=== PATIENT | female | born 1975 | race Caucasian/White ===

== ENCOUNTER 2017-09-08 21:19 | Emergency (ER) | payer OTHER ==
[2017-09-08] MEDS ORDERED: cefTRIAXone 500 MG in Lidocaine 1% 2 ML IM ONE (21:52)
--- NOTE | 2017-09-08 21:52 | EDM.PDOC ---
ED HPI GENERAL MEDICAL PROBLEM - General Chief Complaint: ENT Problem Stated Complaint: PT HAS EAR INFECTION Time Seen by Provider: 09/08/17 21:36 Source of Information: Reports: Patient History Limitations: Reports: No Limitations - History of Present Illness INITIAL COMMENTS - FREE TEXT/NARRATIVE: HISTORY AND PHYSICAL: History of present illness: Patient is a 42-year-old female who presents to the emergency room with complaints of right ear pain. She states she was seen in the clinic yesterday and put on Ceftiner. She was not placed on Augmentin as she does have a history of severe diarrhea with this medication. She took 1 tablet yesterday and 2 tablets today and has not improved. Complaining of pressure and "ringing" to right ear. Denies any fever, chills, chest pain or shortness of breath. Denies any abdominal pain, nausea, vomiting or diarrhea. Patient does have a history of psoriasis and has a "flareup since her ear infection". Review of systems: As per history of present illness and below otherwise all systems reviewed and negative. Past medical history: As per history of present illness and as reviewed below otherwise noncontributory. Surgical history: As per history of present illness and as reviewed below otherwise noncontributory. Social history: No reported history of drug or alcohol abuse. Family history: As per history of present illness and as reviewed below otherwise noncontributory. Physical exam: General: Nontoxic-appearing 42-year-old female. Alert and oriented. Appears in no acute distress. HEENT: Atraumatic, normocephalic, pupils reactive, negative for conjunctival pallor or scleral icterus, mucous membranes moist, throat clear, erythema noted to the right ear canal and dull light reflex with erythema to the tympanic membrane. Left TM is normal. Her neck is supple, nontender, trachea midline. Drooling or trismus. No meningeal signs. Lungs: Clear to auscultation, breath sounds equal bilaterally, chest nontender. Heart: S1S2, regular, negative for clicks, rubs, or JVD. Abdomen: Soft, nondistended, nontender. Negative for masses or hepatosplenomegaly. Negative for costovertebral tenderness. Pelvis: Stable nontender. Genitourinary: Deferred. Rectal: Deferred. Extremities: Atraumatic, negative for cords or calf pain. Neurovascular unremarkable. Neuro: Awake, alert, oriented. Cranial nerves II through XII unremarkable. Cerebellum unremarkable. Motor and sensory unremarkable throughout. Exam nonfocal. Discussed with patient that she has only had 3 dosing of her cefdinir and encouraged her to continue this medication. Patient is requesting a "shot of antibiotic" as she is concerned the Cefdiner isn't working. Will give Rocephin IM here, per patients adamant request. We'll provide a prescription for Ciprodex. Encouraged her to use an [id number] antihistamine to help alleviate the pressure and ringing to right ear. Diagnostics: [] Therapeutics: Rocephin Impression: Otitis Media, Right Otitis Externa, Right Plan: 1. Please take the Cefdinir and external ear drops as directed. If patient continues to have ear pain please follow-up with ENT specialist. The phone number has been given to you upon discharge. 2. Tylenol and/or ibuprofen as needed for pain and fever management. Please of avoid inserting Q-tips into the ear. May use an over the counter antihistamine nasal spray such as AFRIN, as directed x 3 days to help with the pressure/ ringing behind ears. 3. Follow-up with primary care or ENT as we discussed. Return to the ED as needed and as discussed. Definitive disposition and diagnosis as appropriate pending reevaluation and review of above. - Related Data Allergies Allergy/AdvReac Type Severity Reaction Status Date / Time No Known Allergies Allergy Verified 09/08/17 21:33 Home Meds: Home Meds Cefdinir [Omnicef] 300 mg PO BID 09/08/17 [History] Levothyroxine 125 mcg PO DAILY 09/08/17 [History] Past Medical History - Past Health History Medical/Surgical History: Denies Medical/Surgical History Endocrine/Metabolic History: Reports: Hypothyroidism Social & Family History - Family History Family Medical History: Noncontributory - Tobacco Use Smoking Status *Q: Never Smoker - Recreational Drug Use Recreational Drug Use: No ED ROS ENT - Review of Systems Review Of Systems: ROS reveals no pertinent complaints other than HPI. ED EXAM, ENT - Physical Exam Exam: See Below (See dictation) Course - Vital Signs Last Recorded V/S: Last Vital Signs Temp 98.5 F 09/08/17 21:19 Pulse 87 09/08/17 21:19 Resp 18 09/08/17 21:19 BP 129/63 09/08/17 21:19 Pulse Ox 99 09/08/17 21:19 - Orders/Labs/Meds Meds: Medications Discontinued Medications Generic Name Dose Route Start Last Admin Trade Name Kirsten PRN Reason Stop Dose Admin Ceftriaxone Sodium 500 mg/ 2 mls @ 2 mls/sec 09/08/17 21:52 09/08/17 21:58 Lidocaine HCl IM 09/08/17 21:53 2 mls/sec ONETIME ONE Administration Departure - Departure Time of Disposition: 22:01 Disposition: Home, Self-Care 01 Clinical Impression: Otitis media Qualifiers: Otitis media type: suppurative Chronicity: acute Laterality: right Recurrence: not specified as recurrent Spontaneous tympanic membrane rupture: without spontaneous rupture Qualified Code(s): H66.001 - Acute suppurative otitis media without spontaneous rupture of ear drum, right ear Otitis externa Qualifiers: Otitis externa type: unspecified type Chronicity: acute Laterality: right Qualified Code(s): H60.501 - Unspecified acute noninfective otitis externa, right ear - Discharge Information Referrals: PCP,None [Primary Care Provider] - Forms: ED Department Discharge Additional Instructions: The following information is given to patients seen in the emergency department who are being discharged to home. This information is to outline your options for follow-up care. We provide all patients seen in our emergency department with a follow-up referral. The need for follow-up, as well as the timing and circumstances, are variable depending upon the specifics of your emergency department visit. If you don't have a primary care physician on staff, we will provide you with a referral. We always advise you to contact your personal physician following an emergency department visit to inform them of the circumstance of the visit and for follow-up with them and/or the need for any referrals to a consulting specialist. The emergency department will also refer you to a specialist when appropriate. This referral assures that you have the opportunity for follow-up care with a specialist. All of these measure are taken in an effort to provide you with optimal care, which includes your follow-up. Under all circumstances we always encourage you to contact your private physician who remains a resource for coordinating your care. When calling for follow-up care, please make the office aware that this follow-up is from your recent emergency room visit. If for any reason you are refused follow-up, please contact the [facility] Emergency Department at and asked to speak to the emergency department charge nurse. [facility] Specialty [facility] - ENT [address] [place] [id number] 1. Please take the Cefdinir and external ear drops as directed. If patient continues to have ear pain please follow-up with ENT specialist. The phone number has been given to you upon discharge. 2. Tylenol and/or ibuprofen as needed for pain and fever management. Please of avoid inserting Q-tips into the ear. May use an over the counter antihistamine nasal spray such as AFRIN, as directed x 3 days to help with the pressure/ ringing behind ears. 3. Follow-up with primary care or ENT as we discussed. Return to the ED as needed and as discussed.
== END 2017-09-08 22:30 | disposition home or self-care (01) ==
LOC: MW.ED 21:19
DX: H66.001 Acute suppurative otitis media without spontaneous rupture of ear drum, right ear (principal); H60.501 Unspecified acute noninfective otitis externa, right ear; E03.9 Hypothyroidism, unspecified; Z79.899 Other long term (current) drug therapy
CPT/HCPCS: 96372; 99282; J0696

== ENCOUNTER 2018-12-20 20:33 | Inpatient (IN) | payer BC ==
[2018-12-20] MEDS ORDERED: Phenazopyridine 200 MG Tab PO ONE (20:46)
[2018-12-20] MEDS ORDERED: Sodium Chloride 0.9% 1,000 ML IV ONE (20:59)
[2018-12-20] MEDS ORDERED: Morphine 2 MG/ML Syringe IVPUSH ONE (21:02)
[2018-12-20] MEDS ORDERED: Ondansetron 4 MG/2 ML SDV IVPUSH ONE (21:02)
[2018-12-20] MEDS ORDERED: cefTRIAXone 1 GM in Premix Bag 1 BAG IV ONE (21:06)
--- NOTE | 2018-12-20 21:13 | EDM.PDOC ---
ED HPI GENERAL MEDICAL PROBLEM - General Chief Complaint: Genitourinary Problem Stated Complaint: KIDNEY INFECTION Time Seen by Provider: 12/20/18 20:46 Source of Information: Reports: Patient History Limitations: Reports: No Limitations - History of Present Illness INITIAL COMMENTS - FREE TEXT/NARRATIVE: HISTORY AND PHYSICAL: History of present illness: Patient is a 43-year-old female presents to the ED today with concern of a kidney infection. Patient states she saw Dr. Vallejo in the clinic today earlier and was diagnosed with the urinary tract infection/kidney infection. Patient states that she had a recent urine culture which Dr. Vallejo had said the only oral medication she could take was Macrobid. Patient states since then she's taken one dose but feels nauseous and that the pain has increased in her right lower abdomen. Patient states she hasn't been able to take a second dose due to nausea and pain. She rates her pain a 9 out of 10. Patient states she has not had any burning with urination but has right lower quadrant pain that is worse with movement. Patient denies any abdominal surgeries. Patient has subjective fevers at home but has not checked her temperature. Patient denies chest pain, shortness of breath, or cough. Denies headache, neck stiff ness, change in vision, syncope, or near syncope. Denies vomiting, diarrhea, constipation, or dysuria. Has not noted any blood in stool. Patient denies any health history. Review of systems: As per history of present illness and below otherwise all systems reviewed and negative. Past medical history: As per history of present illness and as reviewed below otherwise noncontributory. Surgical history: As per history of present illness and as reviewed below otherwise noncontributory. Social history: See social history for further information Family history: As per history of present illness and as reviewed below otherwise noncontributory. Physical exam: General: Patient is alert, oriented, and in no acute distress. Patient laying comfortably on exam table. HEENT: Atraumatic, normocephalic, pupils equal and reactive bilaterally, negative for conjunctival pallor or scleral icterus, mucous membranes moist, TMs normal bilaterally, throat clear, neck supple, nontender, trachea midline. No drooling or trismus noted. No meningeal signs. No hot potato voice noted. Lungs: Clear to auscultation, breath sounds equal bilaterally, chest nontender. Heart: S1S2, regular rate and rhythm without overt murmur Abdomen: Soft, nondistended. Severe pain to palpation of the RLQ with guarding/ slightly radiating to right flank and positive rebound. Negative for masses or hepatosplenomegaly. Negative for costovertebral tenderness. Pelvis: Stable nontender. Genitourinary: Deferred. Rectal: Deferred. Skin: Intact, warm, dry. No lesions or rashes noted. Extremities: Atraumatic, negative for cords or calf pain. Neurovascular unremarkable. Neuro: Awake, alert, oriented. Cranial nerves II through XII unremarkable. Cerebellum unremarkable. Motor and sensory unremarkable throughout. Exam nonfocal. Notes: Dr. Vallejo has a UA that was put in patient's chart from earlier today that does show bacteria and acute infection. Patient does have a urine culture which shows resistance to Rocephin. Dr. Villa consulted on patient and will admit to observation. Voices understanding and is agreeable to plan of care. Denies any further questions or concerns at this time. Diagnostics: CBC, CMP, UA, urine hCG, lipase, abdominal pelvic CT Therapeutics: Saline, Zofran, morphine, Rocephin, Pyridium Impression: Acute pyelonephritis Plan: 1. Admit to observation to Dr. Villa. Definitive disposition and diagnosis as appropriate pending reevaluation and review of above. Right Flank Pain Score (Numeric/FACES): 4 - Related Data Allergies Allergy/AdvReac Type Severity Reaction Status Date / Time No Known Allergies Allergy Verified 12/20/18 20:39 Home Meds: Home Meds Cefdinir [Omnicef] 300 mg PO BID 09/08/17 [History] Levothyroxine 125 mcg PO DAILY 09/08/17 [History] Past Medical History - Past Health History Medical/Surgical History: Denies Medical/Surgical History Endocrine/Metabolic History: Reports: Hypothyroidism Social & Family History - Family History Family Medical History: Noncontributory - Tobacco Use Smoking Status *Q: Never Smoker - Caffeine Use Caffeine Use: Reports: Coffee - Recreational Drug Use Recreational Drug Use: No ED ROS GENERAL - Review of Systems Review Of Systems: ROS reveals no pertinent complaints other than HPI. ED EXAM, RENAL/ - Physical Exam Exam: See Below (See dictation) Course - Vital Signs Last Recorded V/S: Last Vital Signs Temp 36.9 C 12/20/18 20:40 Pulse 109 H 12/20/18 20:40 Resp 19 12/20/18 20:40 BP 118/70 12/20/18 20:40 Pulse Ox 95 12/20/18 20:40 - Orders/Labs/Meds Orders: Active Orders 24 hr Category Date Time Status Abdomen Pelvis w Cont [CT] Stat Exams 12/20/18 20:59 Taken Labs: Laboratory Tests 12/20/18 12/20/18 12/20/18 Range/Units 20:45 21:04 21:10 WBC 11.02 H (4.0-11.0) K/uL RBC 3.89 L (4.30-5.90) M/uL Hgb 11.1 L (12.0-16.0) g/dL Hct 33.9 L (36.0-46.0) % MCV 87.1 (80.0-98.0) fL MCH 28.5 (27.0-32.0) pg MCHC 32.7 (31.0-37.0) g/dL RDW Std Deviation 47.6 (28.0-62.0) fl RDW Coeff of Keo 15 (11.0-15.0) % Plt Count 201 (150-400) K/uL MPV 10.10 (7.40-12.00) fL Neut % (Auto) 86.1 H (48.0-80.0) % Lymph % (Auto) 5.4 L (16.0-40.0) % Bladen % (Auto) 8.4 (0.0-15.0) % Eos % (Auto) 0.0 (0.0-7.0) % Baso % (Auto) 0.1 (0.0-1.5) % Neut # (Auto) 9.5 H (1.4-5.7) K/uL Lymph # (Auto) 0.6 (0.6-2.4) K/uL Bladen # (Auto) 0.9 H (0.0-0.8) K/uL Eos # (Auto) 0.0 (0.0-0.7) K/uL Baso # (Auto) 0.0 (0.0-0.1) K/uL Nucleated RBC % 0.0 /100WBC Nucleated RBCs # 0 K/uL Sodium (136-145) mmol/L Potassium (3.5-5.1) mmol/L Chloride (98-107) mmol/L Carbon Dioxide (21.0-32.0) mmol/L BUN (7.0-18.0) mg/dL Creatinine (0.6-1.0) mg/dL Est Cr Clr Drug Dosing mL/min Estimated GFR (MDRD) ml/min Glucose (74-106) mg/dL Calcium (8.5-10.1) mg/dL Total Bilirubin (0.2-1.0) mg/dL AST (15-37) IU/L ALT (14-63) IU/L Alkaline Phosphatase (46-116) U/L Total Protein (6.4-8.2) g/dL Albumin (3.4-5.0) g/dL Globulin (2.6-4.0) g/dL Albumin/Globulin Ratio (0.9-1.6) Lipase (73-393) U/L Urine Color YELLOW Urine Appearance CLOUDY Urine pH 5.5 (5.0-8.0) Ur Specific Donahue 1.020 (1.001-1.035) Urine Protein TRACE H (NEGATIVE) mg/dL Urine Glucose (UA) NEGATIVE (NEGATIVE) mg/dL Urine Ketones 40 H (NEGATIVE) mg/dL Urine Occult Blood MODERATE H (NEGATIVE) Urine Nitrite NEGATIVE (NEGATIVE) Urine Bilirubin NEGATIVE (NEGATIVE) Urine Urobilinogen 0.2 (<2.0) EU/dL Ur Leukocyte Esterase TRACE H (NEGATIVE) Urine RBC 2-5 (0-2/HPF) Urine WBC 35-40 (0-5/HPF) Ur Epithelial Cells FEW (NONE-FEW) Urine Bacteria 1+ H (NEGATIVE) Urine HCG, Qual NEGATIVE (NEGATIVE) 12/20/18 Range/Units 21:10 WBC (4.0-11.0) K/uL RBC (4.30-5.90) M/uL Hgb (12.0-16.0) g/dL Hct (36.0-46.0) % MCV (80.0-98.0) fL MCH (27.0-32.0) pg MCHC (31.0-37.0) g/dL RDW Std Deviation (28.0-62.0) fl RDW Coeff of Keo (11.0-15.0) % Plt Count (150-400) K/uL MPV (7.40-12.00) fL Neut % (Auto) (48.0-80.0) % Lymph % (Auto) (16.0-40.0) % Bladen % (Auto) (0.0-15.0) % Eos % (Auto) (0.0-7.0) % Baso % (Auto) (0.0-1.5) % Neut # (Auto) (1.4-5.7) K/uL Lymph # (Auto) (0.6-2.4) K/uL Bladen # (Auto) (0.0-0.8) K/uL Eos # (Auto) (0.0-0.7) K/uL Baso # (Auto) (0.0-0.1) K/uL Nucleated RBC % /100WBC Nucleated RBCs # K/uL Sodium 137 (136-145) mmol/L Potassium 3.2 L (3.5-5.1) mmol/L Chloride 103 (98-107) mmol/L Carbon Dioxide 21.7 (21.0-32.0) mmol/L BUN 9 (7.0-18.0) mg/dL Creatinine 0.8 (0.6-1.0) mg/dL Est Cr Clr Drug Dosing 65.13 mL/min Estimated GFR (MDRD) > 60.0 ml/min Glucose 161 H (74-106) mg/dL Calcium 8.7 (8.5-10.1) mg/dL Total Bilirubin 0.8 (0.2-1.0) mg/dL AST 11 L (15-37) IU/L ALT 15 (14-63) IU/L Alkaline Phosphatase 62 (46-116) U/L Total Protein 7.0 (6.4-8.2) g/dL Albumin 3.3 L (3.4-5.0) g/dL Globulin 3.7 (2.6-4.0) g/dL Albumin/Globulin Ratio 0.9 (0.9-1.6) Lipase 68 L (73-393) U/L Urine Color Urine Appearance Urine pH (5.0-8.0) Ur Specific Donahue (1.001-1.035) Urine Protein (NEGATIVE) mg/dL Urine Glucose (UA) (NEGATIVE) mg/dL Urine Ketones (NEGATIVE) mg/dL Urine Occult Blood (NEGATIVE) Urine Nitrite (NEGATIVE) Urine Bilirubin (NEGATIVE) Urine Urobilinogen (<2.0) EU/dL Ur Leukocyte Esterase (NEGATIVE) Urine RBC (0-2/HPF) Urine WBC (0-5/HPF) Ur Epithelial Cells (NONE-FEW) Urine Bacteria (NEGATIVE) Urine HCG, Qual (NEGATIVE) Meds: Medications Discontinued Medications Generic Name Dose Route Start Last Admin Trade Name Freq PRN Reason Stop Dose Admin Sodium Chloride 1,000 mls @ 999 mls/hr 12/20/18 20:59 12/20/18 21:18 Normal Saline IV 12/20/18 21:59 999 mls/hr BOLUS ONE Administration Ceftriaxone Sodium/Dextrose 1 50 mls @ 100 mls/hr 12/20/18 21:06 12/20/18 21: 19 gm/ Premix IV 12/20/18 21:35 100 mls/hr ONETIME ONE Administration Iopamidol 100 ml 12/20/18 22:04 12/20/18 22:05 Isovue Multipack-370 (76%) IVPUSH 12/20/18 22:05 100 ml ONETIME ONE Administration Morphine Sulfate 2 mg 12/20/18 21:02 12/20/18 21:19 Morphine IVPUSH 12/20/18 21:03 2 mg ONETIME ONE Administration Ondansetron HCl 4 mg 12/20/18 21:02 12/20/18 21:18 Zofran IVPUSH 12/20/18 21:03 4 mg ONETIME ONE Administration Phenazopyridine HCl 200 mg 12/20/18 20:46 12/20/18 21:18 Pyridium PO 12/20/18 20:47 200 mg ONETIME ONE Administration Departure - Departure Time of Disposition: 22:09 Disposition: Refer to Observation Clinical Impression: Acute pyelonephritis - Discharge Information Referrals: Niraj Vallejo MD [Primary Care Provider] - - My Orders Last 24 Hours: My Active Orders 12/20/18 20:59 Abdomen Pelvis w Cont [CT] Stat - Assessment/Plan Last 24 Hours: My Active Orders 12/20/18 20:59 Abdomen Pelvis w Cont [CT] Stat
[2018-12-20 21:35] LABS: CHLORIDE,CL 103 mmol/L (98-107); SODIUM,NA 137 mmol/L (136-145)
[2018-12-20] MEDS ORDERED: Iopamidol 755 MG/ML 200 ML Multipack Bottle IVPUSH ONE (22:04)
--- NOTE | 2018-12-20 22:23 | CT ---
INDICATION: Lower quadrant pain. Evaluate for appendicitis and kidney stones TECHNIQUE: CT abdomen and pelvis acquired with IV contrast. 100 cc Isovue 370 COMPARISON: None FINDINGS: Lower chest: Unremarkable. Liver: Unremarkable. Spleen: Unremarkable. Pancreas: Unremarkable. Gallbladder and bile ducts: Unremarkable. Kidneys: Unremarkable. Adrenal glands: Unremarkable. GI tract: Diffuse colonic fecal retention. No evidence for acute appendicitis. Vascular structures: Unremarkable. Lymph nodes: Unremarkable. Miscellaneous: Unremarkable. No free air or significant free fluid. Pelvic Organs: Unremarkable. Bones: Unremarkable for age. IMPRESSION: Appendix is at the upper limits of normal in diameter with no appendiceal wall thickening or periappendiceal fluid or fat stranding. No urinary tract stones or hydronephrosis. Diffuse colonic fecal retention Dictated by Lance Jack MD @ 12/20/2018 10:21:28 PM Please note that all CT scans at this facility use dose modulation, iterative reconstruction, and/or weight-based dosing when appropriate to reduce radiation dose to as low as reasonably achievable. Dictated by: Lance Jack MD @ 12/20/2018 22:21:42 (Electronically Signed)
[2018-12-20] MEDS ORDERED: Sodium Chloride 0.9% with KCl 1,000 ML IV SCH (23:45)
--- NOTE | 2018-12-21 | PCM.HP ---
H&P History of Present Illness - General Date of Service: 01/20/19 Admit Problem/Dx: Admission Diagnosis/Problem Admission Diagnosis/Problem Acute pyelonephritis - History of Present Illness Initial Comments - Free Text/Narative: 43 yo female with pmh of ESBL UTI last month treated for ten day with nitrofurantonin who presents with similar symptoms of right flank/back pain, fevers and chills. Patient was seen by Dr. Vallejo today in clinic and given an antibiotic. She went home but she is concerned about nausea and vomiting and the ability to treat her kidney infection with only oral antibiotics due to the resistance of her UTI last month. She presented to the ED where she was given Rocephin. Ct scan of abdomen report no hydronephrosis or stone. Appendix at upper limits of normal but no fat stranding or wall thickening. Patient's abdominal exam was benign. Right Flank Pain Score (Numeric/FACES): 2 - Related Data Allergies/Adverse Reactions: Allergies Allergy/AdvReac Type Severity Reaction Status Date / Time No Known Allergies Allergy Verified 12/20/18 20:39 Home Medications: Home Meds Levothyroxine 125 mcg PO DAILY 09/08/17 [History] Acetaminophen [Tylenol] 650 mg PO Q4H PRN tablet 12/21/18 [Rx] Ertapenem [INVanz] 1 gm IV Q24H #12 vial 12/21/18 [Rx] Past Medical History - Past Health History Medical/Surgical History: Denies Medical/Surgical History Endocrine/Metabolic History: Reports: Hypothyroidism Social & Family History - Family History Family Medical History: Noncontributory - Tobacco Use Smoking Status *Q: Never Smoker Second Hand Smoke Exposure: No - Caffeine Use Caffeine Use: Reports: Coffee - Recreational Drug Use Recreational Drug Use: No H&P Review of Systems - Review of Systems: Review Of Systems: ROS reveals no pertinent complaints other than HPI. Exam - Exam Exam: See Below - Vital Signs Vital Signs: Last Vital Signs Temp 36.6 C 12/20/18 23:15 Pulse 82 12/20/18 23:15 Resp 16 12/20/18 23:15 BP 97/62 12/20/18 23:15 Pulse Ox 95 12/20/18 23:15 Weight: 61.598 kg - Exam General: Alert, Oriented HEENT: Mucosa Moist & [place] Neck: Supple Lungs: Clear to Auscultation, Normal Respiratory Effort Cardiovascular: Regular Rate, Regular Rhythm GI/Abdominal Exam: Normal Bowel Sounds, Soft, Non-Tender, No Distention, No Mass. No: Guarding, Rigid, Rebound Back Exam: CVA Tenderness (R) Skin: Warm, Dry, Intact - Patient Data Lab Results Last 24 hrs: Laboratory Results - last 24 hr 12/20/18 12/20/18 12/20/18 Range/Units 20:45 21:04 21:10 WBC 11.02 H (4.0-11.0) K/uL RBC 3.89 L (4.30-5.90) M/uL Hgb 11.1 L (12.0-16.0) g/dL Hct 33.9 L (36.0-46.0) % MCV 87.1 (80.0-98.0) fL MCH 28.5 (27.0-32.0) pg MCHC 32.7 (31.0-37.0) g/dL RDW Std Deviation 47.6 (28.0-62.0) fl RDW Coeff of Keo 15 (11.0-15.0) % Plt Count 201 (150-400) K/uL MPV 10.10 (7.40-12.00) fL Neut % (Auto) 86.1 H (48.0-80.0) % Lymph % (Auto) 5.4 L (16.0-40.0) % [place] % (Auto) 8.4 (0.0-15.0) % Eos % (Auto) 0.0 (0.0-7.0) % Baso % (Auto) 0.1 (0.0-1.5) % Neut # (Auto) 9.5 H (1.4-5.7) K/uL Lymph # (Auto) 0.6 (0.6-2.4) K/uL [place] # (Auto) 0.9 H (0.0-0.8) K/uL Eos # (Auto) 0.0 (0.0-0.7) K/uL Baso # (Auto) 0.0 (0.0-0.1) K/uL Nucleated RBC % 0.0 /100WBC Nucleated RBCs # 0 K/uL Sodium (136-145) mmol/L Potassium (3.5-5.1) mmol/L Chloride (98-107) mmol/L Carbon Dioxide (21.0-32.0) mmol/L BUN (7.0-18.0) mg/dL Creatinine (0.6-1.0) mg/dL Est Cr Clr Drug Dosing mL/min Estimated GFR (MDRD) ml/min Glucose (74-106) mg/dL Calcium (8.5-10.1) mg/dL Total Bilirubin (0.2-1.0) mg/dL AST (15-37) IU/L ALT (14-63) IU/L Alkaline Phosphatase (46-116) U/L Total Protein (6.4-8.2) g/dL Albumin (3.4-5.0) g/dL Globulin (2.6-4.0) g/dL Albumin/Globulin Ratio (0.9-1.6) Lipase (73-393) U/L Urine Color YELLOW Urine Appearance CLOUDY Urine pH 5.5 (5.0-8.0) Ur Specific [place] 1.020 (1.001-1.035) Urine Protein TRACE H (NEGATIVE) mg/dL Urine Glucose (UA) NEGATIVE (NEGATIVE) mg/dL Urine Ketones 40 H (NEGATIVE) mg/dL Urine Occult Blood MODERATE H (NEGATIVE) Urine Nitrite NEGATIVE (NEGATIVE) Urine Bilirubin NEGATIVE (NEGATIVE) Urine Urobilinogen 0.2 (<2.0) EU/dL Ur Leukocyte Esterase TRACE H (NEGATIVE) Urine RBC 2-5 (0-2/HPF) Urine WBC 35-40 (0-5/HPF) Ur Epithelial Cells FEW (NONE-FEW) Urine Bacteria 1+ H (NEGATIVE) Urine HCG, Qual NEGATIVE (NEGATIVE) 12/20/18 Range/Units 21:10 WBC (4.0-11.0) K/uL RBC (4.30-5.90) M/uL Hgb (12.0-16.0) g/dL Hct (36.0-46.0) % MCV (80.0-98.0) fL MCH (27.0-32.0) pg MCHC (31.0-37.0) g/dL RDW Std Deviation (28.0-62.0) fl RDW Coeff of Keo (11.0-15.0) % Plt Count (150-400) K/uL MPV (7.40-12.00) fL Neut % (Auto) (48.0-80.0) % Lymph % (Auto) (16.0-40.0) % [place] % (Auto) (0.0-15.0) % Eos % (Auto) (0.0-7.0) % Baso % (Auto) (0.0-1.5) % Neut # (Auto) (1.4-5.7) K/uL Lymph # (Auto) (0.6-2.4) K/uL [place] # (Auto) (0.0-0.8) K/uL Eos # (Auto) (0.0-0.7) K/uL Baso # (Auto) (0.0-0.1) K/uL Nucleated RBC % /100WBC Nucleated RBCs # K/uL Sodium 137 (136-145) mmol/L Potassium 3.2 L (3.5-5.1) mmol/L Chloride 103 (98-107) mmol/L Carbon Dioxide 21.7 (21.0-32.0) mmol/L BUN 9 (7.0-18.0) mg/dL Creatinine 0.8 (0.6-1.0) mg/dL Est Cr Clr Drug Dosing 65.13 mL/min Estimated GFR (MDRD) > 60.0 ml/min Glucose 161 H (74-106) mg/dL Calcium 8.7 (8.5-10.1) mg/dL Total Bilirubin 0.8 (0.2-1.0) mg/dL AST 11 L (15-37) IU/L ALT 15 (14-63) IU/L Alkaline Phosphatase 62 (46-116) U/L Total Protein 7.0 (6.4-8.2) g/dL Albumin 3.3 L (3.4-5.0) g/dL Globulin 3.7 (2.6-4.0) g/dL Albumin/Globulin Ratio 0.9 (0.9-1.6) Lipase 68 L (73-393) U/L Urine Color Urine Appearance Urine pH (5.0-8.0) Ur Specific [place] (1.001-1.035) Urine Protein (NEGATIVE) mg/dL Urine Glucose (UA) (NEGATIVE) mg/dL Urine Ketones (NEGATIVE) mg/dL Urine Occult Blood (NEGATIVE) Urine Nitrite (NEGATIVE) Urine Bilirubin (NEGATIVE) Urine Urobilinogen (<2.0) EU/dL Ur Leukocyte Esterase (NEGATIVE) Urine RBC (0-2/HPF) Urine WBC (0-5/HPF) Ur Epithelial Cells (NONE-FEW) Urine Bacteria (NEGATIVE) Urine HCG, Qual (NEGATIVE) Result Diagrams: 12/22/18 07:15 12/22/18 07:15 Problem List Initiated/Reviewed/Updated: Yes Orders Last 24hrs: Active Orders 24 hr Category Date Time Status Admission Status [Patient Status] [ADT] Stat ADT 12/20/18 22:10 Active Levothyroxine Med 12/21/18 07:30 Active 125 mcg PO ACBREAKFAST Sodium Chloride 0.9% with KCl [Normal Saline with 40 Med 12/20/18 23:45 Active mEq KCl] 1,000 ml IV ASDIRECTED cefTRIAXone [Rocephin] 1 gm Med 12/21/18 23:45 Active Sodium Chloride 0.9% [Normal Saline] 50 ml IV Q24H Medication Orders Potassium Chloride/Sodium Chloride (Normal Saline With 40 Meq Kcl) 1,000 mls @ 150 mls/hr IV ASDIRECTED [facility] Stop: 12/21/18 06:24 Ceftriaxone Sodium 1 gm/ (Sodium Chloride) 50 mls @ 100 mls/hr IV Q24H [facility] Levothyroxine Sodium (Levothyroxine) 125 mcg PO ACBREAKFAST [facility] Assessment/Plan Comment:: 43 yo female admitted for suspect ESBL pyelonephritis. We will treat with meropenum. Cultures are pending.
[2018-12-21] MEDS ORDERED: Morphine 10 MG/ML Syringe IVPUSH PRN (00:02)
[2018-12-21] MEDS ORDERED: Meropenem 1 GM in Sodium Chloride 0.9% 100 ML IV SCH (00:15)
[2018-12-21] MEDS: oxyCODONE 5 MG Tab PO PRN ×2 (00:31→21:19)
[2018-12-21] MEDS: Meropenem Premix 1 GM in Premix Bag 1 BAG IV SCH ×2 (00:45→09:29)
[2018-12-21] MEDS: Ondansetron 4 MG/2 ML SDV IVPUSH PRN ×4 (03:33→21:19)
[2018-12-21 06:03] LABS: CHLORIDE,CL 108 mmol/L (98-107); SODIUM,NA 138 mmol/L (136-145)
[2018-12-21] MEDS: Levothyroxine 125 MCG Tab PO SCH (06:36)
[2018-12-21] MEDS: Sodium Chloride 0.9% 1,000 ML IV SCH ×2 (09:01→19:33)
[2018-12-21] MEDS: Acetaminophen 325 MG Tab PO PRN ×3 (09:14→23:54)
--- NOTE | 2018-12-21 10:20 | PCM.PN ---
- General Info Date of Service: 12/21/18 Admission Dx/Problem (Free Text): Admission Diagnosis/Problem Admission Diagnosis/Problem Acute pyelonephritis Subjective Update: Not feeling well this morning, nauseated, having subjective fevers and chills. Continues to have R lower abdominal and flank pain. Functional Status: Reports: Pain Controlled, Ambulating, Urinating. Denies: Tolerating Diet - Review of Systems General: Reports: Fever, Fatigue, Malaise HEENT: Denies: Headaches, Sore Throat Pulmonary: Reports: No Symptoms. Denies: Shortness of Breath Cardiovascular: Reports: No Symptoms. Denies: Chest Pain Gastrointestinal: Reports: Abdominal Pain, Decreased Appetite, Nausea Genitourinary: Reports: No Symptoms. Denies: Dysuria, Frequency, Burning Musculoskeletal: Reports: No Symptoms Skin: Reports: No Symptoms Neurological: Reports: No Symptoms Psychiatric: Reports: No Symptoms - Patient Data Vitals - Most Recent: Last Vital Signs Temp 99.3 F 12/21/18 09:14 Pulse 100 12/21/18 07:38 Resp 16 12/21/18 07:38 BP 93/50 L 12/21/18 07:38 Pulse Ox 100 12/21/18 07:38 Weight - Most Recent: 61.598 kg I&O - Last 24 Hours: Intake & Output 12/20/18 12/21/18 12/21/18 22:59 06:59 14:59 Intake Total 1357 1049 Output Total 650 Balance 707 1049 Lab Results Last 24 Hours: Laboratory Results - last 24 hr 12/20/18 12/20/18 12/20/18 Range/Units 20:45 21:04 21:10 WBC 11.02 H (4.0-11.0) K/uL RBC 3.89 L (4.30-5.90) M/uL Hgb 11.1 L (12.0-16.0) g/dL Hct 33.9 L (36.0-46.0) % MCV 87.1 (80.0-98.0) fL MCH 28.5 (27.0-32.0) pg MCHC 32.7 (31.0-37.0) g/dL RDW Std Deviation 47.6 (28.0-62.0) fl RDW Coeff of Keo 15 (11.0-15.0) % Plt Count 201 (150-400) K/uL MPV 10.10 (7.40-12.00) fL Neut % (Auto) 86.1 H (48.0-80.0) % Lymph % (Auto) 5.4 L (16.0-40.0) % [place] % (Auto) 8.4 (0.0-15.0) % Eos % (Auto) 0.0 (0.0-7.0) % Baso % (Auto) 0.1 (0.0-1.5) % Neut # (Auto) 9.5 H (1.4-5.7) K/uL Lymph # (Auto) 0.6 (0.6-2.4) K/uL [place] # (Auto) 0.9 H (0.0-0.8) K/uL Eos # (Auto) 0.0 (0.0-0.7) K/uL Baso # (Auto) 0.0 (0.0-0.1) K/uL Add Manual Diff Neutrophils % (Manual) (48.0-80.0) % Band Neutrophils % % Lymphocytes % (Manual) (16.0-40.0) % Monocytes % (Manual) (0.0-15.0) % Nucleated RBC % 0.0 /100WBC Absolute Seg Neuts (1.4-5.7) Band Neutrophils # Lymphocytes # (Manual) (0.6-2.4) Monocytes # (Manual) (0.0-0.8) Nucleated RBCs # 0 K/uL Sodium (136-145) mmol/L Potassium (3.5-5.1) mmol/L Chloride (98-107) mmol/L Carbon Dioxide (21.0-32.0) mmol/L BUN (7.0-18.0) mg/dL Creatinine (0.6-1.0) mg/dL Est Cr Clr Drug Dosing mL/min Estimated GFR (MDRD) ml/min Glucose (74-106) mg/dL Calcium (8.5-10.1) mg/dL Total Bilirubin (0.2-1.0) mg/dL AST (15-37) IU/L ALT (14-63) IU/L Alkaline Phosphatase (46-116) U/L Total Protein (6.4-8.2) g/dL Albumin (3.4-5.0) g/dL Globulin (2.6-4.0) g/dL Albumin/Globulin Ratio (0.9-1.6) Lipase (73-393) U/L Urine Color YELLOW Urine Appearance CLOUDY Urine pH 5.5 (5.0-8.0) Ur Specific [place] 1.020 (1.001-1.035) Urine Protein TRACE H (NEGATIVE) mg/dL Urine Glucose (UA) NEGATIVE (NEGATIVE) mg/dL Urine Ketones 40 H (NEGATIVE) mg/dL Urine Occult Blood MODERATE H (NEGATIVE) Urine Nitrite NEGATIVE (NEGATIVE) Urine Bilirubin NEGATIVE (NEGATIVE) Urine Urobilinogen 0.2 (<2.0) EU/dL Ur Leukocyte Esterase TRACE H (NEGATIVE) Urine RBC 2-5 (0-2/HPF) Urine WBC 35-40 (0-5/HPF) Ur Epithelial Cells FEW (NONE-FEW) Urine Bacteria 1+ H (NEGATIVE) Urine HCG, Qual NEGATIVE (NEGATIVE) 12/20/18 12/21/18 12/21/18 Range/Units 21:10 05:25 05:25 WBC 10.60 (4.0-11.0) K/uL RBC 3.49 L (4.30-5.90) M/uL Hgb 9.8 L (12.0-16.0) g/dL Hct 30.8 L (36.0-46.0) % MCV 88.3 (80.0-98.0) fL MCH 28.1 (27.0-32.0) pg MCHC 31.8 (31.0-37.0) g/dL RDW Std Deviation 48.9 (28.0-62.0) fl RDW Coeff of Keo 15 (11.0-15.0) % Plt Count 178 (150-400) K/uL MPV 10.50 (7.40-12.00) fL Neut % (Auto) (48.0-80.0) % Lymph % (Auto) (16.0-40.0) % [place] % (Auto) (0.0-15.0) % Eos % (Auto) (0.0-7.0) % Baso % (Auto) (0.0-1.5) % Neut # (Auto) (1.4-5.7) K/uL Lymph # (Auto) (0.6-2.4) K/uL [place] # (Auto) (0.0-0.8) K/uL Eos # (Auto) (0.0-0.7) K/uL Baso # (Auto) (0.0-0.1) K/uL Add Manual Diff YES Neutrophils % (Manual) 88 H (48.0-80.0) % Band Neutrophils % 1 % Lymphocytes % (Manual) 6 L (16.0-40.0) % Monocytes % (Manual) 5 (0.0-15.0) % Nucleated RBC % 0.0 /100WBC Absolute Seg Neuts 9.3 H (1.4-5.7) Band Neutrophils # 0.1 Lymphocytes # (Manual) 0.6 (0.6-2.4) Monocytes # (Manual) 0.5 (0.0-0.8) Nucleated RBCs # 0 K/uL Sodium 137 138 (136-145) mmol/L Potassium 3.2 L 3.6 (3.5-5.1) mmol/L Chloride 103 108 H (98-107) mmol/L Carbon Dioxide 21.7 21.4 (21.0-32.0) mmol/L BUN 9 6 L (7.0-18.0) mg/dL Creatinine 0.8 0.6 (0.6-1.0) mg/dL Est Cr Clr Drug Dosing 65.13 86.84 mL/min Estimated GFR (MDRD) > 60.0 > 60.0 ml/min Glucose 161 H 146 H (74-106) mg/dL Calcium 8.7 7.7 L (8.5-10.1) mg/dL Total Bilirubin 0.8 (0.2-1.0) mg/dL AST 11 L (15-37) IU/L ALT 15 (14-63) IU/L Alkaline Phosphatase 62 (46-116) U/L Total Protein 7.0 (6.4-8.2) g/dL Albumin 3.3 L (3.4-5.0) g/dL Globulin 3.7 (2.6-4.0) g/dL Albumin/Globulin Ratio 0.9 (0.9-1.6) Lipase 68 L (73-393) U/L Urine Color Urine Appearance Urine pH (5.0-8.0) Ur Specific [place] (1.001-1.035) Urine Protein (NEGATIVE) mg/dL Urine Glucose (UA) (NEGATIVE) mg/dL Urine Ketones (NEGATIVE) mg/dL Urine Occult Blood (NEGATIVE) Urine Nitrite (NEGATIVE) Urine Bilirubin (NEGATIVE) Urine Urobilinogen (<2.0) EU/dL Ur Leukocyte Esterase (NEGATIVE) Urine RBC (0-2/HPF) Urine WBC (0-5/HPF) Ur Epithelial Cells (NONE-FEW) Urine Bacteria (NEGATIVE) Urine HCG, Qual (NEGATIVE) Med Orders - Current: Current Medications Acetaminophen (Tylenol) 650 mg PO Q4H PRN PRN Reason: Pain (Mild 1-3)/fever Last Admin: 12/21/18 09:14 Dose: 650 mg Sodium Chloride (Normal Saline) 1,000 mls @ 125 mls/hr IV ASDIRECTED [facility] Last Admin: 12/21/18 09:01 Dose: 125 mls/hr Meropenem 1 gm/ Sodium (Chloride) 50 mls @ 50 mls/hr IV Q8H [facility] Last Admin: 12/21/18 09:15 Dose: 50 mls/hr Levothyroxine Sodium (Levothyroxine) 125 mcg PO ACBREAKFAST [facility] Last Admin: 12/21/18 06:36 Dose: 125 mcg Morphine Sulfate (Morphine) 2 mg IVPUSH Q2H PRN PRN Reason: Pain (severe 7-10) Stop: 12/22/18 00:04 Ondansetron HCl (Zofran) 4 mg IVPUSH Q4H PRN PRN Reason: Pain Last Admin: 12/21/18 07:59 Dose: 4 mg Oxycodone HCl (Oxycodone) 5 mg PO Q4H PRN PRN Reason: Pain (moderate 4-6) Last Admin: 12/21/18 00:31 Dose: 5 mg Discontinued Medications Sodium Chloride (Normal Saline) 1,000 mls @ 999 mls/hr IV BOLUS ONE Stop: 12/20/18 21:59 Last Admin: 12/20/18 21:18 Dose: 999 mls/hr Ceftriaxone Sodium/Dextrose 1 (gm/ Premix) 50 mls @ 100 mls/hr IV ONETIME ONE Stop: 12/20/18 21:35 Last Admin: 12/20/18 21:19 Dose: 100 mls/hr Potassium Chloride/Sodium Chloride (Normal Saline With 40 Meq Kcl) 1,000 mls @ 150 mls/hr IV ASDIRECTED [facility] Stop: 12/21/18 06:24 Last Admin: 12/21/18 00:30 Dose: 150 mls/hr Ceftriaxone Sodium 1 gm/ (Sodium Chloride) 50 mls @ 100 mls/hr IV Q24H [facility] Meropenem 1 gm/ Sodium (Chloride) 100 mls @ 200 mls/hr IV Q8H [facility] Last Admin: 12/21/18 01:34 Dose: Not Given Meropenem/Sodium Chloride 1 gm (/ Premix) 50 mls @ 50 mls/hr IV Q8H [facility] Last Admin: 12/21/18 09:29 Dose: Not Given Iopamidol (Isovue Multipack-370 (76%)) 100 ml IVPUSH ONETIME ONE Stop: 12/20/18 22:05 Last Admin: 12/20/18 22:05 Dose: 100 ml Morphine Sulfate (Morphine) 2 mg IVPUSH ONETIME ONE Stop: 12/20/18 21:03 Last Admin: 12/20/18 21:19 Dose: 2 mg Ondansetron HCl (Zofran) 4 mg IVPUSH ONETIME ONE Stop: 12/20/18 21:03 Last Admin: 12/20/18 21:18 Dose: 4 mg Phenazopyridine HCl (Pyridium) 200 mg PO ONETIME ONE Stop: 12/20/18 20:47 Last Admin: 12/20/18 21:18 Dose: 200 mg - Exam General: Alert, Oriented, Cooperative Lungs: Clear to Auscultation, Normal Respiratory Effort Cardiovascular: Regular Rate, Regular Rhythm GI/Abdominal Exam: Normal Bowel Sounds, Soft, Tender (R flank and R lower abdomen) Extremities: Normal Inspection, Normal Range of Motion, Non-Tender, No Pedal Edema Neurological: No New Focal Deficit Psy/Mental Status: Alert, Normal Affect, Normal Mood - Problem List & Annotations (1) Acute pyelonephritis SNOMED Code(s): 79768808 Code(s): N10 - ACUTE PYELONEPHRITIS Status: Acute Current Visit: No (2) Abdominal pain SNOMED Code(s): 83046963 Code(s): R10.9 - UNSPECIFIED ABDOMINAL PAIN Status: Acute Current Visit: Yes Qualifiers: Abdominal location: right lower quadrant Qualified Code(s): R10.31 - Right lower quadrant pain (3) Hypothyroidism SNOMED Code(s): 94982414 Code(s): E03.9 - HYPOTHYROIDISM, UNSPECIFIED Status: Chronic Current Visit: Yes - Problem List Review Problem List Initiated/Reviewed/Updated: Yes - My Orders Last 24 Hours: My Active Orders 12/21/18 10:14 Consult to Physician [CONS] Routine 12/21/18 10:15 Notify Provider Consults [RC] ASDIRECTED - Assessment Assessment:: This 43 year old female admitted with abdominal pain and suspected acute pyelonephritis 1. Acute pyelonephritis: Hx of ESBL UTI, treated with Meropenem. Await culture from clinic to return. Continues to have R lower abdominal pain and R flank pain. CT revealed appendix in upper limits of normal but no wall thickening or stranding noted. Spoke with Dr Vo he will evaluate patient today. VTE prophylaxis: SCDs Dispo: 1-2 days pending improvement. - Plan Plan:: 43 yo female admitted for suspect ESBL pyelonephritis. We will treat with meropenum. Cultures are pending.
--- NOTE | 2018-12-21 14:18 | PCM.SN ---
- Free Text/Narrative Note: pt seen, chart reviewed; abd pain, abnl ct; h/p suugested low risks for acute appendicitis; would like to reassess in 24 hrs if pt continue to be in house, if not, pt agree to call ED or my office in 24 hrs about clinical conditions; and also agree to seek med attentions, if any change in clinical conditions; thanks for the consult and care of this nice patient; [id number]
[2018-12-21] MEDS: Ertapenem 1 GM in Sodium Chloride 0.9% 50 ML IV SCH (15:37)
[2018-12-21] MEDS ORDERED: Prochlorperazine 10 MG/2 ML SDV IVPUSH ONE (16:40)
[2018-12-21] MEDS ORDERED: cefTRIAXone 1 GM in Sodium Chloride 0.9% 50 ML IV SCH (23:45)
[2018-12-22] MEDS: Sodium Chloride 0.9% 1,000 ML IV SCH ×3 (04:00→20:44)
[2018-12-22] MEDS: Acetaminophen 325 MG Tab PO PRN ×4 (06:23→21:53)
[2018-12-22] MEDS: Ondansetron 4 MG/2 ML SDV IVPUSH PRN (06:25)
[2018-12-22] MEDS: Levothyroxine 125 MCG Tab PO SCH (06:58)
[2018-12-22 08:13] LABS: CHLORIDE,CL 110 mmol/L (98-107); SODIUM,NA 141 mmol/L (136-145)
--- NOTE | 2018-12-22 12:46 | PCM.PN ---
- General Info Date of Service: 12/22/18 - Review of Systems Systems Review Comment:: nausea is improving, had fevers last night and this morning. - Patient Data Vitals - Most Recent: Last Vital Signs Temp 37.4 C 12/22/18 12:21 Pulse 82 12/22/18 12:00 Resp 18 12/22/18 12:00 BP 109/59 L 12/22/18 12:00 Pulse Ox 94 L 12/22/18 12:20 Weight - Most Recent: 61.598 kg I&O - Last 24 Hours: Intake & Output 12/21/18 12/22/18 12/22/18 22:59 06:59 14:59 Intake Total 3002 2510 Output Total 950 1075 Balance 2052 1435 Lab Results Last 24 Hours: Laboratory Results - last 24 hr 12/22/18 12/22/18 Range/Units 07:15 07:15 WBC 6.20 (4.0-11.0) K/uL RBC 3.47 L (4.30-5.90) M/uL Hgb 9.9 L (12.0-16.0) g/dL Hct 30.9 L (36.0-46.0) % MCV 89.0 (80.0-98.0) fL MCH 28.5 (27.0-32.0) pg MCHC 32.0 (31.0-37.0) g/dL RDW Std Deviation 50.2 (28.0-62.0) fl RDW Coeff of Keo 16 H (11.0-15.0) % Plt Count 167 (150-400) K/uL MPV 10.40 (7.40-12.00) fL Neut % (Auto) 78.5 (48.0-80.0) % Lymph % (Auto) 11.9 L (16.0-40.0) % [place] % (Auto) 8.9 (0.0-15.0) % Eos % (Auto) 0.5 (0.0-7.0) % Baso % (Auto) 0.2 (0.0-1.5) % Neut # (Auto) 4.9 (1.4-5.7) K/uL Lymph # (Auto) 0.7 (0.6-2.4) K/uL [place] # (Auto) 0.6 (0.0-0.8) K/uL Eos # (Auto) 0.0 (0.0-0.7) K/uL Baso # (Auto) 0.0 (0.0-0.1) K/uL Nucleated RBC % 0.0 /100WBC Nucleated RBCs # 0 K/uL Sodium 141 (136-145) mmol/L Potassium 3.9 (3.5-5.1) mmol/L Chloride 110 H (98-107) mmol/L Carbon Dioxide 22.6 (21.0-32.0) mmol/L BUN 5 L (7.0-18.0) mg/dL Creatinine 0.7 (0.6-1.0) mg/dL Est Cr Clr Drug Dosing 74.43 mL/min Estimated GFR (MDRD) > 60.0 ml/min Glucose 110 H (74-106) mg/dL Calcium 7.9 L (8.5-10.1) mg/dL Med Orders - Current: Current Medications Acetaminophen (Tylenol) 650 mg PO Q4H PRN PRN Reason: Pain (Mild 1-3)/fever Last Admin: 12/22/18 12:21 Dose: 650 mg Sodium Chloride (Normal Saline) 1,000 mls @ 125 mls/hr IV ASDIRECTED [facility] Last Admin: 12/22/18 12:11 Dose: 125 mls/hr Ertapenem 1 gm/ Sodium (Chloride) 50 mls @ 100 mls/hr IV Q24H [facility] Last Admin: 12/21/18 15:37 Dose: 100 mls/hr Levothyroxine Sodium (Levothyroxine) 125 mcg PO ACBREAKFAST [facility] Last Admin: 12/22/18 06:58 Dose: 125 mcg Ondansetron HCl (Zofran) 4 mg IVPUSH Q4H PRN PRN Reason: Pain Last Admin: 12/22/18 06:25 Dose: 4 mg Oxycodone HCl (Oxycodone) 5 mg PO Q4H PRN PRN Reason: Pain (moderate 4-6) Last Admin: 12/21/18 21:19 Dose: 5 mg Discontinued Medications Sodium Chloride (Normal Saline) 1,000 mls @ 999 mls/hr IV BOLUS ONE Stop: 12/20/18 21:59 Last Admin: 12/20/18 21:18 Dose: 999 mls/hr Ceftriaxone Sodium/Dextrose 1 (gm/ Premix) 50 mls @ 100 mls/hr IV ONETIME ONE Stop: 12/20/18 21:35 Last Admin: 12/20/18 21:19 Dose: 100 mls/hr Potassium Chloride/Sodium Chloride (Normal Saline With 40 Meq Kcl) 1,000 mls @ 150 mls/hr IV ASDIRECTED [facility] Stop: 12/21/18 06:24 Last Admin: 12/21/18 00:30 Dose: 150 mls/hr Ceftriaxone Sodium 1 gm/ (Sodium Chloride) 50 mls @ 100 mls/hr IV Q24H [facility] Meropenem 1 gm/ Sodium (Chloride) 100 mls @ 200 mls/hr IV Q8H [facility] Last Admin: 12/21/18 01:34 Dose: Not Given Meropenem/Sodium Chloride 1 gm (/ Premix) 50 mls @ 50 mls/hr IV Q8H [facility] Last Admin: 12/21/18 09:29 Dose: Not Given Meropenem 1 gm/ Sodium (Chloride) 50 mls @ 50 mls/hr IV Q8H [facility] Last Admin: 12/21/18 09:15 Dose: 50 mls/hr Iopamidol (Isovue Multipack-370 (76%)) 100 ml IVPUSH ONETIME ONE Stop: 12/20/18 22:05 Last Admin: 12/20/18 22:05 Dose: 100 ml Morphine Sulfate (Morphine) 2 mg IVPUSH ONETIME ONE Stop: 12/20/18 21:03 Last Admin: 12/20/18 21:19 Dose: 2 mg Morphine Sulfate (Morphine) 2 mg IVPUSH Q2H PRN PRN Reason: Pain (severe 7-10) Stop: 12/22/18 00:04 Ondansetron HCl (Zofran) 4 mg IVPUSH ONETIME ONE Stop: 12/20/18 21:03 Last Admin: 12/20/18 21:18 Dose: 4 mg Phenazopyridine HCl (Pyridium) 200 mg PO ONETIME ONE Stop: 12/20/18 20:47 Last Admin: 12/20/18 21:18 Dose: 200 mg Prochlorperazine Edisylate (Compazine) 5 mg IVPUSH ONETIME ONE Stop: 12/21/18 16:41 Last Admin: 12/21/18 16:54 Dose: 5 mg - Exam General: Alert, Oriented HEENT: Mucous Membr. Moist/[place] Neck: Supple Lungs: Clear to Auscultation, Normal Respiratory Effort Cardiovascular: Regular Rate, Regular Rhythm GI/Abdominal Exam: Normal Bowel Sounds, Soft, Non-Tender, No Distention Back Exam: No: CVA Tenderness (L), CVA Tenderness (R) Extremities: No Pedal Edema - Problem List Review Problem List Initiated/Reviewed/Updated: Yes - My Orders Last 24 Hours: My Active Orders 12/22/18 00:05 Blood Culture x2 Reflex Set [OM.PC] Stat 12/22/18 00:40 CULTURE BLOOD [BC] Stat CULTURE BLOOD [BC] Stat 12/23/18 05:11 BASIC METABOLIC PANEL,BMP [CHEM] AM CBC WITH AUTO DIFF [HEME] AM - Plan Plan:: This 43 year old female admitted with acute pyelonephritis. 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 Still waiting on culture results.
[2018-12-22] MEDS: Ertapenem 1 GM in Sodium Chloride 0.9% 50 ML IV SCH (16:07)
[2018-12-23] MEDS: Acetaminophen 325 MG Tab PO PRN ×3 (03:52→15:32)
[2018-12-23] MEDS ORDERED: Albuterol/Ipratropium 3.0-0.5 MG/3 ML Neb Soln NEB ONE (04:12)
[2018-12-23] MEDS: Sodium Chloride 0.9% 1,000 ML IV SCH (04:22)
--- NOTE | 2018-12-23 04:44 | CR ---
INDICATION: Chest tightness, shortness of breath TECHNIQUE: Chest radiograph 1 view COMPARISON: None FINDINGS: Moderate degradation of image quality noted due to body habitus. Mediastinum: The mediastinum is normal in appearance. The heart silhouette is normal in size and morphology. Lung: Moderate bibasilar edema and atelectasis is noted with small bilateral pleural effusions. No pneumothorax is identified. Musculoskeletal: Unremarkable for age. IMPRESSION: 1. Moderate bibasilar edema and atelectasis is noted with small bilateral pleural effusions. Dictated by Drew Pan MD @ 12/23/2018 4:43:10 AM Dictated by: Drew Pan MD @ 12/23/2018 04:43:15 (Electronically Signed)
[2018-12-23 05:17] LABS: CHLORIDE,CL 110 mmol/L (98-107); SODIUM,NA 141 mmol/L (136-145)
[2018-12-23] MEDS: Levothyroxine 125 MCG Tab PO SCH (06:38)
[2018-12-23] MEDS ORDERED: Potassium Chloride 20 MEQ Tab.ER PO ONE (07:50)
[2018-12-23] MEDS ORDERED: Furosemide 40 MG/4 ML VIAL IVPUSH ONE (08:22)
[2018-12-23] MEDS: Ertapenem 1 GM in Sodium Chloride 0.9% 50 ML IV SCH (15:33)
--- NOTE | 2018-12-23 15:44 | PCM.DCSUM1 ---
Discharge Summary - Discharge Data Discharge Date: 12/23/18 Discharge Disposition: Home, Self-Care 01 Condition: Stable - Patient Summary/Data Consults: Consultations 12/21/18 10:14 Consult to Physician [CONS] Routine Hospital Course: 43 yo female who was admitted for ESBL ecoli pyelonephritis. She has a past medical history of ESBL E.coli UTI treated for ten day with nitrofurantonin last month. She presented with right flank pain, fevers and chills. Patient presented first to Dr. Vallejo's clinic and then again to the ER. She was noted to have WBC of 11,000 and UA consistent with UTI. CT scan of abdomen report no hydronephrosis or stone. Appendix was at upper limits of normal but no fat stranding or wall thickening. She was treated with a IV Carbapenem for suspected ESBL E.coli, which was confirmed with urine cultures. She did have fevers during her stay but blood cultures were negative. Her last night she did have some shortness of breath and she was given lasix and her IV fluids were discontinued. CXR showed pulmonary edema and atelectasis. Today she is feeling well and requesting discharge. She was discharge home and instructed to come back daily for IV Ertapenem with last dose on 01/02/19. - Patient Instructions Diet: Regular Diet as Tolerated, Drink 8-10+ Glasses/Day Activity: Rest and Relax Today Driving: Do Not Drive Showering/Bathing: May Shower Notify Provider of: Fever, Increased Pain, Swelling and Redness, Drainage, Nausea and/or Vomiting Other/Special Instructions: Return daily for IV therapy, on weekends please arrive at ER admissions and check in for IV therapy. During the week you will arrive at [facility]. - Discharge Plan *PRESCRIPTION DRUG MONITORING PROGRAM REVIEWED*: Not Applicable *COPY OF PRESCRIPTION DRUG MONITORING REPORT IN PATIENT VANESSA: Not Applicable Prescriptions/Med Rec: Ertapenem [INVanz] 1 gm IV Q24H #12 vial Home Medications: Home Meds Levothyroxine 125 mcg PO DAILY 09/08/17 [History] Acetaminophen [Tylenol] 650 mg PO Q4H PRN tablet 12/21/18 [Rx] Ertapenem [INVanz] 1 gm IV Q24H #12 vial 12/21/18 [Rx] Oxygen Therapy Mode: Room Air Patient Handouts: Ertapenem injection, Pyelonephritis, Adult, [id number] Referrals: Renetta Villalobos PA [Physician [employer]] - 01/03/19 2:00 pm - Discharge Summary/Plan Comment DC Time >30 min.: No - Patient Data Vitals - Most Recent: Last Vital Signs Temp 36.7 C 12/23/18 13:00 Pulse 75 12/23/18 13:00 Resp 16 12/23/18 13:00 BP 113/69 12/23/18 13:00 Pulse Ox 95 12/23/18 13:00 Weight - Most Recent: 61.598 kg I&O - Last 24 hours: Intake & Output 12/23/18 12/23/18 12/23/18 06:59 14:59 22:59 Intake Total 1924 Output Total 1200 Balance 724 Lab Results - Last 24 hrs: Laboratory Results - last 24 hr 12/23/18 12/23/18 12/23/18 Range/Units 04:53 04:53 04:53 WBC 5.00 (4.0-11.0) K/uL RBC 3.22 L (4.30-5.90) M/uL Hgb 8.9 L (12.0-16.0) g/dL Hct 27.9 L (36.0-46.0) % MCV 86.6 (80.0-98.0) fL MCH 27.6 (27.0-32.0) pg MCHC 31.9 (31.0-37.0) g/dL RDW Std Deviation 47.9 (28.0-62.0) fl RDW Coeff of Keo 15 (11.0-15.0) % Plt Count 165 (150-400) K/uL MPV 10.00 (7.40-12.00) fL Neut % (Auto) 72.2 (48.0-80.0) % Lymph % (Auto) 16.0 (16.0-40.0) % [place] % (Auto) 10.8 (0.0-15.0) % Eos % (Auto) 0.8 (0.0-7.0) % Baso % (Auto) 0.2 (0.0-1.5) % Neut # (Auto) 3.6 (1.4-5.7) K/uL Lymph # (Auto) 0.8 (0.6-2.4) K/uL [place] # (Auto) 0.5 (0.0-0.8) K/uL Eos # (Auto) 0.0 (0.0-0.7) K/uL Baso # (Auto) 0.0 (0.0-0.1) K/uL Nucleated RBC % 0.0 /100WBC Nucleated RBCs # 0 K/uL Sodium 141 (136-145) mmol/L Potassium 3.3 L (3.5-5.1) mmol/L Chloride 110 H (98-107) mmol/L Carbon Dioxide 19.4 L (21.0-32.0) mmol/L BUN 4 L (7.0-18.0) mg/dL Creatinine 0.5 L (0.6-1.0) mg/dL Est Cr Clr Drug Dosing 104.21 mL/min Estimated GFR (MDRD) > 60.0 ml/min Glucose 108 H (74-106) mg/dL Calcium 7.4 L (8.5-10.1) mg/dL Troponin I < 0.050 (0.000-0.056) ng/mL SARIKA Results - Last 24 hrs: Microbiology 12/20/18 20:45 Urine Culture - Final Urine, Clean Catch MIXED JUAN M >100,000 CFU/ML 12/22/18 00:40 Aerobic Blood Culture - Preliminary Blood - Venous - Lab Draw NO GROWTH AFTER 1 DAY Anaerobic Blood Culture - Preliminary NO GROWTH AFTER 1 DAY 12/22/18 00:40 Aerobic Blood Culture - Preliminary Blood - Venous NO GROWTH AFTER 1 DAY Anaerobic Blood Culture - Preliminary NO GROWTH AFTER 1 DAY Med Orders - Current: Current Medications Acetaminophen (Tylenol) 650 mg PO Q4H PRN PRN Reason: Pain (Mild 1-3)/fever Last Admin: 12/23/18 15:32 Dose: 650 mg Ertapenem 1 gm/ Sodium (Chloride) 50 mls @ 100 mls/hr IV Q24H ZAINA Last Admin: 12/23/18 15:33 Dose: 100 mls/hr Levothyroxine Sodium (Levothyroxine) 125 mcg PO ACBREAKFAST ZAINA Last Admin: 12/23/18 06:38 Dose: 125 mcg Ondansetron HCl (Zofran) 4 mg IVPUSH Q4H PRN PRN Reason: Pain Last Admin: 12/22/18 06:25 Dose: 4 mg Oxycodone HCl (Oxycodone) 5 mg PO Q4H PRN PRN Reason: Pain (moderate 4-6) Last Admin: 12/21/18 21:19 Dose: 5 mg Discontinued Medications Albuterol/Ipratropium (Duoneb 3.0-0.5 Mg/3 Ml) 3 ml NEB ONETIME ONE Stop: 12/23/18 04:13 Last Admin: 12/23/18 04:22 Dose: 3 ml Furosemide (Lasix) 40 mg IVPUSH NOW ONE Stop: 12/23/18 08:23 Last Admin: 12/23/18 08:44 Dose: 40 mg Sodium Chloride (Normal Saline) 1,000 mls @ 999 mls/hr IV BOLUS ONE Stop: 12/20/18 21:59 Last Admin: 12/20/18 21:18 Dose: 999 mls/hr Ceftriaxone Sodium/Dextrose 1 (gm/ Premix) 50 mls @ 100 mls/hr IV ONETIME ONE Stop: 12/20/18 21:35 Last Admin: 12/20/18 21:19 Dose: 100 mls/hr Potassium Chloride/Sodium Chloride (Normal Saline With 40 Meq Kcl) 1,000 mls @ 150 mls/hr IV ASDIRECTED [facility] Stop: 12/21/18 06:24 Last Admin: 12/21/18 00:30 Dose: 150 mls/hr Ceftriaxone Sodium 1 gm/ (Sodium Chloride) 50 mls @ 100 mls/hr IV Q24H ZAINA Meropenem 1 gm/ Sodium (Chloride) 100 mls @ 200 mls/hr IV Q8H [facility] Last Admin: 12/21/18 01:34 Dose: Not Given Sodium Chloride (Normal Saline) 1,000 mls @ 125 mls/hr IV ASDIRECTED [facility] Last Admin: 12/23/18 04:22 Dose: 125 mls/hr Meropenem/Sodium Chloride 1 gm (/ Premix) 50 mls @ 50 mls/hr IV Q8H [facility] Last Admin: 12/21/18 09:29 Dose: Not Given Meropenem 1 gm/ Sodium (Chloride) 50 mls @ 50 mls/hr IV Q8H [facility] Last Admin: 12/21/18 09:15 Dose: 50 mls/hr Iopamidol (Isovue Multipack-370 (76%)) 100 ml IVPUSH ONETIME ONE Stop: 12/20/18 22:05 Last Admin: 12/20/18 22:05 Dose: 100 ml Morphine Sulfate (Morphine) 2 mg IVPUSH ONETIME ONE Stop: 12/20/18 21:03 Last Admin: 12/20/18 21:19 Dose: 2 mg Morphine Sulfate (Morphine) 2 mg IVPUSH Q2H PRN PRN Reason: Pain (severe 7-10) Stop: 12/22/18 00:04 Ondansetron HCl (Zofran) 4 mg IVPUSH ONETIME ONE Stop: 12/20/18 21:03 Last Admin: 12/20/18 21:18 Dose: 4 mg Phenazopyridine HCl (Pyridium) 200 mg PO ONETIME ONE Stop: 12/20/18 20:47 Last Admin: 12/20/18 21:18 Dose: 200 mg Potassium Chloride (Klor-Con M20) 40 meq PO ONETIME ONE Stop: 12/23/18 07:51 Last Admin: 12/23/18 08:43 Dose: 40 meq Prochlorperazine Edisylate (Compazine) 5 mg IVPUSH ONETIME ONE Stop: 12/21/18 16:41 Last Admin: 12/21/18 16:54 Dose: 5 mg
--- NOTE | 2018-12-24 14:06 | CONS ---
DATE OF CONSULTATION: 12/21/2018 DATE OF : 1975 PRIMARY CARE PHYSICIAN: Niraj Vallejo M.D. Consult was called. The patient was seen shortly after. CONCERNING QUESTION: Abnormal CAT scan. HISTORY OF PRESENT ILLNESS: The patient is a 43-year-old lady, who has recently been treated for UTI and now is in the hospital for similar episode. The patient presented with pain and complained about 6/10 on the pain scale in the right lower quadrant. Had a CAT scan done, which revealed appendix at the upper limit of normal, but no fat stranding or wall thickening. Surgery was consulted. The patient remarked that right now she has no pain. She was hurting yesterday, but now she has no pain, she is hungry, and she was able to get in and out of bed just like regular situation and able to jump up and down and to touch the ceiling with absolutely no discomfort. PAST MEDICAL HISTORY: Significant for no diabetes, [place], CVA, or hypertension. PAST SURGICAL HISTORY: Normal vaginal delivery x1. ALLERGIES: Please refer to nursing note for details. MEDICATION: Please refer to nursing note for details. SOCIAL HISTORY: The patient denied tobacco or alcohol abuse. FAMILY HISTORY: Noncontributory. PHYSICAL EXAMINATION: GENERAL: A very pleasant lady, telling jokes and laughing with the doctor upon interview. HEENT: Normocephalic and atraumatic. Sclerae are anicteric. LUNGS: Clear to auscultation. HEART: Regular rate and rhythm. ABDOMEN: Soft, nondistended. No pulsating tender midline abdominal structure. No surgical scar. Nontender in the [place]Burney's point. LABORATORY DATA: Upon consultation, white count 10,600, H and H are 10 and 31, platelet is 178,000. BUN is 6, creatinine is 0.6, potassium is 3.6. UA has blood and white cells 35 to 40. Abdomen CAT scan, appendix at the upper limit of normal in diameter. No appendiceal wall thickening or periappendiceal fluid or fat stranding. IMPRESSION/PLAN: Abnormal CAT scan, but there is no radiologic evidence of appendicitis, and on examination, the patient is able to jump up and down without discomfort or pain, and patient is hungry and wants to eat. I believe the patient's abdominal pain is probably from the . I agree with what you treating and will examine the patient in 24 hours, if the patient is still in-house. If not, the patient promised to call my office or the emergency room regarding her clinical situation, and the patient is also aware and agrees that if the pain returns at nighttime, the patient becomes sweaty, has nausea and vomiting, or has any signs or symptoms of change in the clinical picture, the patient will call my office or call emergency room, and for the time being, the patient is alright to follow up with me or primary doctor in 1-2 week. I do not think the patient's current situation is at risk for appendicitis. Thank you for kind referral. RAIZA MONTEZ /[id number]
== END 2018-12-23 17:15 | disposition home or self-care (01) | DRG 463 ==
LOC: MW.ED 20:33 → MW.MS 22:10 → OBSVTOIN 22:10
PROVIDERS: ADMIT Internal Medicine; ATTEND Internal Medicine
DX: N10 Acute pyelonephritis (principal); B96.20 Unspecified Escherichia coli [E. coli] as the cause of diseases classified elsewhere; Z16.12 Extended spectrum beta lactamase (ESBL) resistance; E03.9 Hypothyroidism, unspecified; Z79.890 Hormone replacement therapy; Z79.899 Other long term (current) drug therapy
CPT/HCPCS: 36415; 71045; 71045-26; 74177; 74177-26; 80048; 80053; 81001; 81025; 83690; 84484; 85025; 87040; 87086; 93005; 96365; 96375; 99285-25; A4217; A9270-GY; J0696; J0780; J1335; J1940; J2185; J2270; J2405; J3480; J7040; J7050; J7620-GY; Q9967